=== PATIENT | female | born 1970 | race African-American/Black ===

== ENCOUNTER 2016-11-09 15:53 | Emergency (ER) | payer MEDICARE, MEDICAID ==
[~2016-11-09] VITALS: Ht 162.6 cm; Wt 81.6 kg
[~2016-11-09 15:53] MED LIST: ALPR2TAB2 PO; CARI-277 PO; LEVO50TA7 PO; NOR10T PO; THYR60TA PO
[2016-11-09 16:24] VITALS: BP 115/71
== END 2016-11-09 16:48 | disposition home or self-care (01) ==
LOC: ER 15:56
DX: S31.109D Unspecified open wound of abdominal wall, unspecified quadrant without penetration into peritoneal cavity, subsequent encounter (principal); M19.90 Unspecified osteoarthritis, unspecified site; I10 Essential (primary) hypertension; E07.89 Other specified disorders of thyroid; G89.29 Other chronic pain; M06.9 Rheumatoid arthritis, unspecified; Z98.51 Tubal ligation status; Z90.710 Acquired absence of both cervix and uterus; Z90.89 Acquired absence of other organs; Z48.02 Encounter for removal of sutures; Z86.14 Personal history of Methicillin resistant Staphylococcus aureus infection

== ENCOUNTER 2017-10-23 13:58 | Emergency (ER) | payer MEDICARE, MEDICAID ==
[~2017-10-23] VITALS: Ht 162.6 cm; Wt 88.5 kg
[2017-10-23 15:19] VITALS: BP 131/79
== END 2017-10-23 16:09 | disposition home or self-care (01) ==
LOC: ER 14:01
DX: S60.222A Contusion of left hand, initial encounter (principal); I10 Essential (primary) hypertension; E07.89 Other specified disorders of thyroid; Z98.51 Tubal ligation status; Z90.710 Acquired absence of both cervix and uterus; W22.8XXA Striking against or struck by other objects, initial encounter; Y93.89 Activity, other specified; Y99.8 Other external cause status; Y92.89 Other specified places as the place of occurrence of the external cause
CPT/HCPCS: 73130

== ENCOUNTER → 2019-07-14 | Outpatient (CLI) | payer MEDICARE, MEDICAID | END | disposition home or self-care (01) | LOC: Rad HDHVI 12:47 | PROVIDERS: ATTEND Internal Medicine Cardiovascular Disease | DX: I08.1 Rheumatic disorders of both mitral and tricuspid valves (principal); R07.9 Chest pain, unspecified; R79.82 Elevated C-reactive protein (CRP); I10 Essential (primary) hypertension | CPT/HCPCS: 93306 ==

== ENCOUNTER → 2019-07-15 | Outpatient (CLI) | payer MEDICARE, MEDICAID ==
[~2019-07-15] VITALS: Ht 162.6 cm; Wt 93.4 kg
== END | disposition home or self-care (01) ==
LOC: Rad HDHVI 12:55
PROVIDERS: ATTEND Internal Medicine Cardiovascular Disease
DX: Z01.810 Encounter for preprocedural cardiovascular examination (principal); I10 Essential (primary) hypertension; R07.9 Chest pain, unspecified
CPT/HCPCS: 78452; 93017; 96374; A9500

== ENCOUNTER 2023-06-20 00:04 | Emergency (ER) | payer MEDICARE, MEDICAID ==
[~2023-06-20] VITALS: Ht 162.6 cm; Wt 91.4 kg
[~2023-06-20 00:04] MED LIST changes: +NITR-87 PO; +ZOFR4T PO
[2023-06-20 00:23] VITALS: BP 116/74; PULSE 78; RESP 16; O2SAT 98
[2023-06-20 01:10] LABS: Alanine Aminotransferase 32 U/L (7-40); Alkaline Phosphatase 57 U/L (46-116); Anion Gap 9 (5-15); Aspartate Aminotransferase 37 U/L (13-40); BUN/Creatinine Ratio 5.6 (10.0-20.0); Blood Urea Nitrogen 7 mg/dL (9-23); Calcium 9.5 mg/dL (8.7-10.4); Carbon Dioxide 27 mmol/L (20-30); Chloride 103 mmol/L (98-107); Glucose 100 mg/dL (74-106); Potassium 3.4 mmol/L (3.5-5.1); Sodium 139 mmol/L (136-145)
[2023-06-20 01:11] LABS: Albumin 5.1 g/dL (3.2-4.8); Bilirubin, Total 0.5 mg/dL (0.2-1.0); Total Protein 7.8 g/dL (5.7-8.2)
[2023-06-20 01:11] LABS: Urine Bacteria MANY /hpf (None Seen); Urine Blood Negative /uL (Negative); Urine Clarity HAZY (Clear); Urine Color Yellow (Yellow); Urine Hyaline Cast FEW /lpf (0 - 2); Urine Mucus FEW (None Seen); Urine Protein, UAD TRACE (Negative); Urine Specific Gravity 1.016 (1.001-1.035); Urine Urobilinogen Normal (Negative); Urine WBC 13 /hpf (0 - 5); Urine pH 6.5 (5.0-8.0)
[2023-06-20 01:18] LABS: Basophils # (auto) 0 10 ^3/uL (0-0.2); Basophils % (auto) 0.7 % (0.0-2.0); Eosinophils # (auto) 0 10 ^3/uL (0-0.8); Eosinophils % (auto) 0.3 % (0.0-7.0); Hematocrit 42.6 % (36.0-46.0); Hemoglobin 14.3 g/dL (12.2-16.2); Lymphocytes # (auto) 2.8 10 ^3/uL (0.4-5.4); Lymphocytes % (auto) 38.6 % (10.0-50.0); Mean Corpuscular Hemoglobin 30.6 pg (28.0-32.0); Mean Corpuscular Hgb Conc. 33.6 g/dL (32.0-36.0); Mean Corpuscular Volume 91.2 fL (80.0-100.0); Monocytes # (auto) 0.4 10 ^3/uL (0-1.3); Neutrophils # (auto) 4.1 10 ^3/uL (1.6-8.6); Neutrophils % (auto) 55.4 % (37.0-80.0); Nucleated Red Blood Cells % 0.1 %; Red Blood Cells 4.67 10^6/uL (4.0-5.20); Red Cell Distribution Width 13.9 % (11.8-14.3); White Blood Cell 7.4 10^3/uL (4.4-10.8)
[2023-06-20] MEDS ORDERED: NITROFURANTOIN 100 mg CAP PO ONE (01:45)
[2023-06-20] MEDS ORDERED: ACET500T58 PO (01:50)
[2023-06-20] MEDS ORDERED: NITR-87 PO (01:50)
== END 2023-06-20 03:02 | disposition home or self-care (01) ==
LOC: ER 00:04
DX: N39.0 Urinary tract infection, site not specified (principal); I10 Essential (primary) hypertension; E03.9 Hypothyroidism, unspecified; Z86.2 Personal history of diseases of the blood and blood-forming organs and certain disorders involving the immune mechanism; Z90.710 Acquired absence of both cervix and uterus; Z90.89 Acquired absence of other organs; Z79.899 Other long term (current) drug therapy
CPT/HCPCS: 36415; 80053; 81001; 85025